=== PATIENT | female | born 1990 ===

== ENCOUNTER 2018-09-03 12:10 | Inpatient (IN) | payer OTHER ==
[~2018-09-03] VITALS: Ht 162.6 cm; Wt 77.6 kg
[2018-09-03] MEDS ORDERED: PRENATAL TABLE1 EAC3 PO (13:09)
== END 2018-09-05 14:57 | disposition home or self-care, planned readmission (81) | DRG 807 ==
LOC: LDR 12:10 → OB/GYN 20:59
PROC: 10E0XZZ Delivery of Products of Conception, External Approach (ICD-10-PCS; principal; 2018-09-03)
PROC: 0W8NXZZ Division of Female Perineum, External Approach (ICD-10-PCS; 2018-09-03)
PROC: 4A033R1 Measurement of Arterial Saturation, Peripheral, Percutaneous Approach (ICD-10-PCS; 2018-09-03)
PROC: 4A1HXCZ Monitoring of Products of Conception, Cardiac Rate, External Approach (ICD-10-PCS; 2018-09-03)
DX: O80 Encounter for full-term uncomplicated delivery (principal); Z37.0 Single live birth; Z3A.38 38 weeks gestation of pregnancy; Z22.330 Carrier of Group B streptococcus